=== PATIENT | male | born 1985 | race Caucasian/White ===

== ENCOUNTER 2017-05-17 17:58 | Emergency (ER) | payer SELFPAY ==
[~2017-05-17] VITALS: Wt 84.0 kg
[2017-05-17] MEDS ORDERED: KETOROLAC 60 MG INJ IM STA (18:28)
--- NOTE | 2017-05-17 18:30 | ERD ---
ER Documentation Chief Complaint Date/Time DATE: 05/17/17 TIME: 18:28 Chief Complaint CRAMPING FEELING ON UPPER BACK, DENIES NUMBNESS ON ARMS HPI This patient is an otherwise healthy pleasant 32-year-old male who is here in the [facility] visiting from [place]. He states for the last 2 days he has had bilateral upper back and shoulder pain. The pain made it difficult for him to sleep last night. Pain is cramping in nature. He tried to take over-the- counter vitamins to help but it did not. He denies any trauma. He has no chest pain or shortness of breath. No fever. No cough. No recent illness. Denies any numbness or tingling. No incontinence. ROS All systems reviewed and are negative except as per history of present illness. PMhx/Soc Medical and Surgical Hx: pt denies Medical Hx, pt denies Surgical Hx History of Surgery: No Anesthesia Reaction: No Hx Neurological Disorder: No Hx Respiratory Disorders: No Hx Cardiac Disorders: No Hx Psychiatric Problems: No Hx Miscellaneous Medical Probl: No Hx Alcohol Use: No Hx Substance Use: No Hx Tobacco Use: No Smoking Status: Never smoker FmHx Family History: No diabetes Physical Exam Vitals Vital Signs Date Time Temp Pulse Resp B/P Pulse Ox O2 Delivery O2 Flow Rate FiO2 05/17/17 18:06 97.6 56 17 138/80 97 Physical Exam General: well developed, well nourished, alert, nontoxic, no distress Head: normocephalic, atraumatic Neck: Supple, nontender, no lymphadenopathy, no midline tenderness Respiratory: Clear to auscaultation bilaterally, speaks in full sentences, no use of accesory muscles or labored breathing, no rales, ronchi, or wheezing Cardiovascular: RRR, No murmurs GI: soft, non tender, non distended, negative murphys sign, negative mcburneys point tenderness, no cva tenderness bilaterally, no rebound or guarding Back: no midline tenderness, no step offs or bony abnormalities, sensation to light touch in tact Extremities: moving all extremities normally, normal gait, no edema Procedures/MDM 32-year-old male presents with back pain. His vital signs are all normal. There is no trauma and he is neurovascularly intact and states that after he leaves here he is going to go to the gym to work out. His most likely musculoskeletal in nature. I doubt any emergent cause of his etiology. He was given a Toradol injection here in the emergency room and discharged with ibuprofen and Flexeril. Recommended this patient follow up with her primary care doctor within 48 hours or return to the emergency room for any worsening of symptoms. However this time I do believe there is suitable for outpatient management. I answered all their questions and they agreed with the plan and were discharged home. Departure Diagnosis: Primary Impression: Back pain Condition: Stable NICOL MESA PA-C May 17, 2017 18:30
[2017-05-17] MEDS ORDERED: IBUP-1542 PO (18:31)
[2017-05-17] MEDS ORDERED: CYCL-319 PO (18:31)
[2017-05-17 19:27] VITALS: BP 128/77; PULSE 56; RESP 16
== END 2017-05-17 19:29 | disposition home or self-care (01) ==
LOC: FTE 17:58
DX: M54.6 Pain in thoracic spine (principal)
CPT/HCPCS: 96372; 99284; J1885